=== PATIENT | female | born 1965 | race Caucasian/White ===

== ENCOUNTER → 2023-06-04 12:51 | Outpatient (REF) | payer BC, SELFPAY ==
[2023-06-10 18:19] LABS: Stone Analysis Mass 8 mg
== END ==
LOC: CLAB 12:51
PROVIDERS: ATTENDING PHYSICIAN Surgery
DX: N21.0 Calculus in bladder (principal)
CPT/HCPCS: 82365

== ENCOUNTER 2023-06-05 21:59 | Emergency (ER) | payer BC, SELFPAY ==
[2023-06-05 22:07] VITALS: BP 117/76
[2023-06-05 22:26] LABS: Urine Albumin 1+ (Neg - Trace); Urine Bilirubin 1+ (Negative); Urine Character Very Cloudy (Clear); Urine Color Amber; Urine Glucose Negative (Negative); Urine Ketone Trace (Negative); Urine Leukocyte 1+ (Negative); Urine Nitrite Positive (Negative); Urine Occult Blood 4+ (Negative); Urine Specific Gravity 1.025 (<1.030); Urine Urobilinogen Negative (Neg - 1+)
[2023-06-05 22:34] LABS: Urine Bacteria Few (Negative); Urine Mucus Few; Urine Red Blood Cell 80-90 /HPF (0-2)
[2023-06-06] VITALS: BP 106/69; BMI 28.6
[2023-06-06 01:22] LABS: % Basophils 0.2 % (0-2); % Eosinophils 0.1 % (0-6); % Immature Granulocytes 0.2 % (0-0.5); % Lymphocytes 21.5 % (20.5-51.1); % Monocytes 5.8 % (1.7-9.3); % Neutrophils 72.2 % (42.2-75.2); Absolute Lymphocytes 1.8 10^3/uL (1.2-3.4); Absolute Monocytes 0.5 10^3/uL (0.1-0.6); Absolute Neutrophils 6.2 10^3/uL (1.4-6.5); Hematocrit 33.1 % (37.0-47.0); Hemoglobin 11.8 g/dL (12.0-16.0); Mean Corp Hgb Conc. 35.6 g/dL (33.0-37.0); Mean Corpuscular Hgb 31.2 pg (27.0-31.0); Mean Corpuscular Volume 87.6 fL (81.0-99.0); Mean Platelet Volume 12.1 fL (7.4-10.4); Nucleated Red Blood Cells % 0 %; Platelet Count 125 10^3/uL (130-400); Red Blood Cell Count 3.78 10^6/uL (4.20-5.40); Red Cell Dist. Width 12.6 % (11.5-14.5); White Blood Cell Count 8.5 10^3/uL (4.8-10.8)
[2023-06-06 01:38] LABS: Blood Urea Nitrogen 13 mg/dl (7-17); Calcium 8.9 mg/dl (8.4-10.2); Carbon Dioxide 27 mmol/L (22-30); Chloride 109 mmol/L (98-107); Estimated Creatinine Clearance 72 ml/min; Glucose 106 mg/dl (70-99); Sodium 139 mmol/L (135-145); eGFR > 60.00
--- NOTE | 2023-06-06 02:04 | ED.GENMED ---
History of Present Illness
General
Chief Complaint: Flank Pain
Source: patient
Exam Limitations: none
Time Seen by Provider: 06/05/23 23:13
Nursing documentation reviewed up to this point in time: agreed with
Travel History
Have you had any contact with someone who has COVID-19?: No
Do you have any symptoms of coronavirus? Fever > 100 degrees, chills, cough, shortness of breath, sore throat, loss of taste or smell, muscle aches, or headache?: No
History of Present Illness
History of Present Illness:
Patient status post outpatient lithotripsy 2 days ago, presents to ED secondary to intermittent left flank pain with nausea sensation since yesterday afternoon. Patient spoke with her urologist, Dr. Rivera, who recommended patient come to ED for
evaluation. Denies fever or chills. Denies vomiting. Denies trauma. Denies difficulty with urination.
Past History
Past History
ED Past Medical History: None
ED Past Surgical History: None
Social History
Tobacco: Non-smoker
Personal: Single
Living: with family
Family History
Family History: Other
Review of Systems
Review of Systems
Allergies reviewed?: Yes
Constitutional: Reports no symptoms
EENT: Reports no symptoms
ABD/GI: Reports nausea
: Reports flank pain
Musculoskeletal: Reports no symptoms
Skin: Reports no symptoms
Neurological: Reports no symptoms
Phy Exam
Physical Exam
Physical Exam:
Physical Exam
General: mild distress, not acutely ill. afebrile
Head: nc/at. eomi
Neck: supple. no meningeal signs.
Abdomen: normal bowel sounds. not tender.
Neuro: alert and oriented. no focal neurological deficits
Skin: no rash
Psychiatric: well kept. interactive and cooperative
Extremities: no edema. no calf tenderness.
Course
Orders/Labs/Results
Orders:
Orders
06/05/23 22:19
Urinalysis Reflex To Culture Urgent
Date Specimen was Collected: 06/05/23
Time Specimen was Collected: 22:17
Urine Microscopic Reflex Cult Urgent
Urine Culture Urgent
ANCA Source: U
Specimen Description:
Date Specimen was Collected: 06/05/23
Time Specimen was Collected: 22:17
06/05/23 23:57
Basic Metabolic Panel Urgent
Complete Blood Count/With Diff Urgent
06/06/23 02:48
Ketorolac [Toradol] 10 mg PO NOW STA
Ondansetron Orally Disint [Zofran Odt (Orally Disintegrating)] 4 mg PO NOW STA
Tamsulosin [Flomax] 0.4 mg PO NOW STA
06/06/23 02:57
Ketorolac [Toradol] 10 mg PO NOW STA
06/06/23 03:00
Flush (0.9% Sodium Chloride) [Flush (Nss)] See Dose Instructions IV PER PROTOCOL
Abnormal Lab Results
06/05/23 06/06/23
22:19 01:07
RBC 3.78 L 10^6/uL
(4.20-5.40)
Hgb 11.8 L g/dL
(12.0-16.0)
Hct 33.1 L %
(37.0-47.0)
MCH 31.2 H pg
(27.0-31.0)
Plt Count 125 L 10^3/uL
(130-400)
MPV 12.1 H fL
(7.4-10.4)
Chloride 109 H mmol/L
(98-107)
Glucose 106 H mg/dl
(70-99)
Urine Ketones Trace A
(Negative)
Ur Occult Blood Reflex 4+ A
(Negative)
Urine Nitrite (Reflex) Positive A
(Negative)
Urine Bilirubin 1+ A
(Negative)
Leukocyte Esterase Rfl 1+ A
(Negative)
Urine RBC 80-90 A /HPF
(0-2)
Urine WBC (Reflex) 11-15 A /HPF
(0-5)
Urine Bacteria (Reflex) Few A
(Negative)
Urine Albumin (Reflex) 1+ A
(Neg - Trace)
06/06/23 01:07
06/06/23 01:07
Vital Signs
Initial and Last Documented VS:
Initial Vital Signs
Temp Pulse Resp BP Pulse Ox
98.3 F 73 15 117/76 96
06/05/23 22:07 06/05/23 22:07 06/05/23 22:07 06/05/23 22:07 06/05/23 22:07
Last Documented Vital Signs
Temp Pulse Resp BP Pulse Ox
98.3 F 62 14 101/68 98
06/05/23 22:07 06/06/23 02:25 06/06/23 02:25 06/06/23 02:25 06/06/23 02:25
MDM/Problems Addressed
MDM/Problems Addressed:
Post void residual : < 20 ml urine
Patient remained asymptomatic during prolonged observation ED, along with normal blood work. Urinalysis, likely contaminant. Urine culture pending.
Discussed with (urology) - agrees with plan to D/C home with following recommendation: flomax, zofran odt, toradol, and pyridium.
*Critical Care Note
Total Time (30-74mins, 75-104mins- exclusive of procedures): Not Applicable
ED Attending Note
-
Portions of this chart may have been created with voice recognition software.� Occasional wrong word or��sound alike� substitutions may have occurred due to the inherent limitations of voice recognition software.
Discharge Plan
Departure
Patient Disposition: Home (Routine Discharge)
Date of Disposition: 06/06/23
Time of Disposition: 02:50
Patient with high blood pressure during this ER visit?: Yes
Condition: Good
Discharge Problem:
Renal colic
Instructions: Renal Colic (DC)
Prescriptions:
New
tamsulosin [Flomax] 0.4 mg Capsule
0.4 mg PO DAILY Qty: 7 0RF
ondansetron 4 mg Tablet,Disintegrating
4 mg PO TIDPRN PRN (Reason: nausea/vomiting) Qty: 12 0RF
phenazopyridine [Pyridium] 100 mg tablet
100 mg PO TID PRN (Reason: Pain) Qty: 14 0RF
ketorolac 10 mg tablet
10 mg PO TID PRN (Reason: Pain) 5 Days Qty: 10 0RF
No Action
omeprazole magnesium [Prilosec OTC] 20 MG tablet,delayed release (DR/EC)
20 mg PO DAILY
L.acidoph, paracasei,B. lactis 1 EACH capsule
1 ea PO DAILY
amoxicillin 500 MG capsule
500 mg PO BID Qty: 10 0RF
Referrals:
Nico Rivera MD [Active] -
Marjan Bhagat PA-C [Family Provider] -
Activity Restrictions/Additional Instructions:
As discussed, please follow-up with your urologist for further evaluation and treatment. Your prescriptions have been sent electronically to [facility] in [place].
Interventions
Interventions:
*Risk Screen - Suicide Last Done: 06/05/23 22:07
*General Assessment Last Done: 06/05/23 22:07
*Neglect/Abuse Screening Last Done: 06/05/23 22:07
*ED COVID-19 Vaccine History Last Done: 06/05/23 22:07
*Nursing Disposition Last Done: 06/06/23 03:35
W[place]-Rvunds-Gvbiqbpiou Assessment Last Done: 06/06/23 00:00
ED-Female Genitourinary Assessment Last Done: 06/06/23 00:00
Discharge Date and Time
Discharge Date/Time: 06/06/23 03:35
[2023-06-06 02:25] VITALS: BP 101/68
[2023-06-06] MEDS: ZOFRAN ODT (ORALLY DISINTEGRATING) 4 MG PO (03:18)
[2023-06-06] MEDS: FLOMAX 0.400000000000000022 MG PO (03:18)
[2023-06-06] MEDS: TORADOL 10 MG PO (03:21)
== END 2023-06-06 03:35 | disposition home or self-care (01) ==
LOC: EMR 21:59
PROVIDERS: EMERGENCY PHYSICIAN Emergency Medicine; FAMILY PHYSICIAN Physician Assistant Medical
DX: N23 Unspecified renal colic (principal)
CPT/HCPCS: 99282; 80048; 81003; 81015; 85025; 87086

== ENCOUNTER → 2023-06-30 07:09 | Outpatient (REF) | payer BC, SELFPAY | LOC: RAD 07:09 | PROVIDERS: ATTENDING PHYSICIAN Surgery; FAMILY PHYSICIAN Physician Assistant Medical | DX: N20.0 Calculus of kidney (principal) | CPT/HCPCS: 74176 ==

== ENCOUNTER → 2023-07-23 07:17 | Outpatient (REF) | payer BC, SELFPAY | LOC: HWRAD 07:17 | PROVIDERS: ATTENDING PHYSICIAN Nurse Practitioner Family; FAMILY PHYSICIAN Physician Assistant Medical | DX: M85.80 Other specified disorders of bone density and structure, unspecified site (principal) | CPT/HCPCS: 77080 ==

== ENCOUNTER → 2023-10-30 18:54 | Outpatient (REF) | payer BC, SELFPAY | LOC: MRI 3T 18:54 | PROVIDERS: ATTENDING PHYSICIAN Internal Medicine Gastroenterology; FAMILY PHYSICIAN Physician Assistant Medical | DX: K76.89 Other specified diseases of liver (principal) | CPT/HCPCS: 74183; A9581 ==

== ENCOUNTER → 2024-03-18 07:46 | Outpatient (REF) | payer BC, SELFPAY | LOC: WDC 07:46 | PROVIDERS: ATTENDING PHYSICIAN Obstetrics & Gynecology; FAMILY PHYSICIAN Physician Assistant Medical | DX: Z12.31 Encounter for screening mammogram for malignant neoplasm of breast (principal) | CPT/HCPCS: 77063; 77067 ==